=== PATIENT | female | born 1980 | race Caucasian/White ===

== ENCOUNTER 2020-09-27 02:22 | Outpatient (CLI) | payer OTHER, SELFPAY ==
[2020-09-27 22:41] LABS: SARS-CoV-2 RNA PCR Negative
== END 2020-09-27 02:23 | disposition home or self-care (01) ==
LOC: ANHCOVIDDT 02:22
PROVIDERS: PCP Family Medicine; Visit Provider Obstetrics & Gynecology
DX: Z01.818 Encounter for other preprocedural examination (principal); Z20.828 Contact with and (suspected) exposure to other viral communicable diseases
CPT/HCPCS: 87635; C9803; U0003

== ENCOUNTER 2020-09-27 11:04 | Outpatient (CLI) | payer OTHER, SELFPAY ==
[2020-09-27 11:25] LABS: Basophils Absolute Auto 0.1 K/mm3 (0.0-0.1); Basophils Percent Auto 0.9 % (0.2-1.2); Eosinophils Absolute Auto 0.3 K/mm3 (0-0.3); Eosinophils Percent Auto 3.9 % (0-4.4); Hematocrit 43.9 % (37.0-47.0); Hemoglobin 14.9 g/dL (12.0-15.0); Immature Granulocyte Absolute 0.01 K/mm3 (0.00-0.031); Immature Granulocyte Percent A 0.1 % (0-0.5); Lymphocytes Absolute Auto 2.26 K/mm3 (0.9-3.2); Lymphocytes Percent Auto 30.3 % (18.3-44.2); Mean Corpuscular HGB Conc 33.9 g/dl (32-36); Mean Corpuscular Hemoglobin 29.8 pg (26-34); Mean Corpuscular Volume 87.8 fl (80-100); Monocytes Absolute Auto 0.8 K/mm3 (0.1-0.6); Monocytes Percent Auto 10.1 % (2.6-8.5); Neutrophils Absolute Auto 4.1 K/mm3 (1.3-6.7); Neutrophils Percent Auto 54.7 % (45.5-73.1); Platelet Count Result 297 k/mm3 (150-375); Red Cell Distribution Width 12.5 % (11.5-14.5); White Blood Count 7.5 K/mm3 (4.5-10.0)
== END 2020-09-27 11:05 | disposition home or self-care (01) ==
PROVIDERS: PCP Family Medicine; Visit Provider Obstetrics & Gynecology
DX: Z01.818 Encounter for other preprocedural examination (principal); N85.2 Hypertrophy of uterus
CPT/HCPCS: 36415; 85025; 86850; 86900; 86901

== ENCOUNTER 2020-09-30 | Day surgery (SDC) | payer OTHER, SELFPAY ==
[2020-09-26 10:30] VITALS: BMI 32.3
--- NOTE | 2020-09-27 13:56 | P.HP_ITS ---
H&P: HPI History of Present Illness Date/Time: 09/27/20 13:56 Chief complaint: Abnormal Bleeding/ Hx Abnormal PAP/Enlarged Uterus Narrative: Carola Robles is a 40 year old female 2 4 P2 who was admitted for robotic total vaginal hysterectomy bilateral salpingectomy. She has had continued having irregular bleeding despite undergoing an ablation. She also has pain and discomfort. Risks and benefits of this procedure reviewed including but not exclusive of , aspiration pneumonia, bleeding, transfusion, perforation injury to bowel, bladder, ureters, or other internal organs with need for open laparotomy. She received the [employer] handout entitled hysterectomy as well as the NG handout. She had all questions answered. She asked to proceed Review of Systems Review of Systems: All systems reviewed & are unremarkable except as noted in HPI and below PMFSH Social History Social History Smoking status: Never smoker Drinks per week: 1 Substance use: never Spiritual care concerns: No Meds Home Medications and Allergies Home Medications Medication Instructions Recorded Confirmed Type cholecalciferol (vitamin D3) 50 mcg PO DAILY 09/26/20 09/26/20 History [Vitamin D3] folic acid 1 mg PO DAILY 09/26/20 09/26/20 History omega 1-kgn-dtq-fish oil [Fish Oil] 1 cap PO DAILY 09/26/20 09/26/20 History vitamin B complex 1 cap PO DAILY 09/26/20 09/26/20 History Allergies Allergy/AdvReac Type Severity Reaction Status Date / Time No Known Allergies Allergy Unverified 09/26/20 10:05 Exam Const: General: no acute distress Eyes: General: appearance normal, both eyes and all related structures Neck: Neck: supple and no JVD Thyroid: thyroid normal Resp: Effort & Inspection: normal respiratory effort Auscultation: clear to auscultation bilaterally Cardio: Rate: regular rate Rhythm: regular rhythm GI: Inspection: non-distended GI Palp: Yes Soft to palpation, No Tenderness to palpation present (GI) and No Guarding due to palpation present (GI) Auscultation: normal bowel sounds : General: Yes bladder normal to inspection External Female Exam: normal external appearance Speculum Exam - Vagina: normal appearance of the vagina Speculum Exam - Cervix: normal appearance of the cervix Bimanual exam- vagin a & uterus: boggy and enlarged Skin: General skin exam: no rashes or lesions noted Extrem: General: normal to inspection and no edema Psych: Mental Status: mental status grossly normal Affect: normal affect Assessment and Plan Additional Plan mesh in: Enlarged uterus and continued bleeding despite therapy with previous ablation Plan: Robotic hysterectomy and bilateral salpingectomy
[2020-09-30] VITALS (15 sets, daily range): BP systolic 99–134; BP diastolic 55–90; PULSE 63–88; RESP 12–16; TEMP 36.6–37.4; O2SAT 96–100
--- NOTE | 2020-09-30 06:16 | WPDHPUPDATE1 ---
History and Physical Update Update Date/Time: 09/30/20 06:16 History and Physical has been reviewed, including an updated exam of the patient. There are NO changes in the patient's condition. Risks, benefits, and alternatives have been discussed and questions answered. Patient agrees to proceed with procedure.
--- NOTE | 2020-09-30 06:29 | WPDANESEPPF ---
Anes - Initial Pre Proc Eval Procedure: Operation Date: 09/30/20 07:30 Proposed Procedures p Robotic Assisted Total Vaginal Hysterectomy, Bilateral Salpingectomy - Arsenio Carrasco MD Date/Time: 09/30/20 06:29 Surgeon: Arsenio Carrasco MD Pre Op Diagnosis: Abnormal Bleeding/ Hx Abnormal PAP/Enlarged Uterus Patient Data Age: 40 Gender: F Height: 5 ft 6 in Weight: 90.8 kg Last Vital Signs Temp 37.2 C 09/30/20 06:08 Pulse 81 09/30/20 06:08 Resp 16 09/30/20 06:08 BP 134/90 09/30/20 06:08 Pulse Ox 100 09/30/20 06:08 Allergies Allergy/AdvReac Type Severity Reaction Status Date / Time No Known Allergies Allergy Unverified 09/30/20 06:31 Home Medications Medication Instructions Recorded Confirmed Type cholecalciferol (vitamin D3) 50 mcg PO DAILY 09/26/20 09/26/20 History [Vitamin D3] folic acid 1 mg PO DAILY 09/26/20 09/26/20 History omega 4-dyo-ace-fish oil [Fish Oil] 1 cap PO DAILY 09/26/20 09/26/20 History vitamin B complex 1 cap PO DAILY 09/26/20 09/26/20 History hydrocodone-acetaminophen [[place]] 1 tablet PO Q4H PRN #30 tablet 09/30/20 Rx Patient hx anesthesia problems: none Family hx anesthesia problems: none PMFSH Past Medical History Medical History (Updated 09/30/20 @ 06:32 by Arsenio Owens MD) Obesity Surgical History Surgical History (Updated 09/30/20 @ 06:32 by Arsenio Owens MD) H/O laparoscopy History of mandibular surgery Social History Social History Smoking status: Never smoker Drinks per week: 1 Substance use: never Living arrangements: with family Spiritual care concerns: No Anes - Eval Final PreProcedure Day of Procedure 09/30/20 06:29 Patient weight: obese Heart: regular rate and rhythm Lungs: clear to auscultation Airway: Mallampati scale class II Neurological: alert and oriented Last oral intake: >/= 8 hours ASA classification: II Emergent: no Anesthetic plan: proceed Anesthesia type and monitoring: general ETT and standard monitoring Informed Consent: The patient's anesthetic plan and its attendant risks and benefits were discussed with the patient/family/POA. Questions were solicited and answers provided to the satisfaction of the patient/family/POA.
[2020-09-30] MEDS: ACETAMINOPHEN 500 MG TABLET 1000 MG PO (06:31)
[2020-09-30] MEDS: LACTATED RINGERS 1,000 ML 30 ML IV CONT ×2 (06:44→08:37)
[2020-09-30] MEDS: KETOROLAC 15 MG/ML VIAL (*BKC) IV PUSH (06:45)
[2020-09-30] MEDS: ceFAZolin 2 GM/D5W 50 ML 2 GM/50 ML BAG IVPB (07:23)
--- NOTE | 2020-09-30 08:24 | PM.PROC ---
Procedure Note - Detailed Date of procedure: 09/30/20 Pre-op diagnosis: Abnormal Bleeding/ Hx Abnormal PAP/Enlarged Uterus Surgeon: Arsenio Carrasco MD Postop diagnosis: Abnormal bleeding/abnormal Pap/enlarged uterus Procedure: Robotic total vaginal hysterectomy and bilateral salpingectomy EBL: 20cc Anesthesia: General endotracheal Complications: None Findings: Enlarged uterus. Tubes status post tubal ligation. Normal-appearing ovaries bilaterally. Description of procedure: The patient was prepped and draped in the normal sterile fashion placed in the dorsal lithotomy position. Under excellent general endotracheal anesthesia weighted speculum was placed in posterior fornix of vagina. Anterior lip of the cervix grasped with a single-tooth tenaculum and the uterus sounded to 9cm. Serial dilatation with fragmented dilators performed followed by passage of the 8. VELASQUEZ and the 2. And half cold cup. Next the 16 Urdu catheter was placed in the bladder and drained of clear urine. The remainder the instruments removed. The gloves were changed. A supraumbilical incision was made the Veress needle passed in the abdomen. The abdomen was filled with CO2 gas to 15mm Hg. The 8mm trocar advanced in the abdomen. The downside visualized and no injury seen. The patient placed in Trendelenburg and right and left lateral quadrant incisions made. The 8mm trocars advanced under direct visualization assuring no injury. A right upper quadrant incision made and the 10mm trocar advanced under direct visualization assuring no injury. The robot was docked. Attention was turned to the drug abuse counselor. The left round ligament was grasped, burned, cut. Anteriorly a bladder flap was formed by sharply dissecting with the scissors to the opposite round ligament which was clamped, burned, cut. Next the left fallopian tube was sharply dissected away from the ovarian complex to its opening at the uterus to be removed. In like fashion removing the right tube the ovary was from the tube. The left utero-ovarian ligament was then skeletonized to conserve the left ovary clamped, burned, cut. This was brought to the level of previously cut round ligament. In like fashion conserving the right ovary the right utero-ovarian ligament was clamped, burned, cut and brought to the level of previously cut round ligament. Next the cardinal and broad ligaments were serially skeletonized. These on the left they were clamped, burned, cut. Once the uterine vessels could be seen there were individually clamped, burned, cut. In like fashion the cardinal and broad ligaments on the right were serially skeletonized. These were clamped, burned, cut. This was brought down to the level of the uterine vessels. These were individually clamped, burned, cut. Blanching the uterus was noted a colpotomy incision was made in the cervix uterus and tubes removed through the vagina. Blood loss estimated at20cc. The vagina was then closed with continuous running 0V lock from lateral edge to lateral edge back to the midline. Irrigation undertaken until clear. [place] derm was placed on the raw surface areas and excellent hemostasis was noted. The robot was undocked. The gas removed from the abdomen. The incisions closed with 4 O Monocryl and glue. The patient was taken to recovery in satisfactory condition. All sponge, needle, instrument counts were correct. There were no immediate complications
[2020-09-30] MEDS: fentaNYL CITRATE INJ (*CRX) 100 MCG/2 ML VIAL 25 MCG IV PUSH ×2 (09:15→09:19)
--- NOTE | 2020-09-30 09:21 | SUR.PHASEI ---
[phone] sbar faxed floor notified
--- NOTE | 2020-09-30 09:55 | PC.NURSE ---
This patient, Carola Robles, was received from PACU on 09/30/20 at 0955. Patient/family oriented to unit policies and routines
[2020-09-30] MEDS: MORPHINE SULFATE (*CRX) 4 MG/ML INJ IV PUSH ×2 (10:43→20:12)
[2020-09-30] MEDS: DEXTROSE 5%/LACTATED RINGERS 1,000 ML 125 ML IV CONT (10:43)
[2020-09-30] MEDS: KETOROLAC 30 MG/ML VIAL (*BKC) IV PUSH ×2 (15:41→23:50)
[2020-09-30] MEDS: DOCUSATE SODIUM 100 MG CAPSULE PO (19:01)
[2020-09-30] MEDS: HYDROcodone/acetaminophen (*CRX) 5-325 MG TABLET 1 TAB PO (19:03)
[2020-09-30] MEDS: ONDANSETRON INJ 4 MG/2 ML VIAL IV PUSH (22:13)
[2020-10-01] VITALS: BP 100/61; PULSE 76; RESP 16; TEMP 37; O2SAT 98
[2020-10-01] MEDS: HYDROcodone/acetaminophen (*CRX) 10-325 MG TABLET 1 TAB PO ×2 (03:58→11:03)
[2020-10-01 04:00] VITALS: BP 106/67; PULSE 74; RESP 16; TEMP 36.7; O2SAT 99
[2020-10-01 04:57] LABS: Basophils Percent Auto 0.4 % (0.2-1.2); Eosinophils Absolute Auto 0.1 K/mm3 (0-0.3); Eosinophils Percent Auto 0.5 % (0-4.4); Hematocrit 33.5 % (37.0-47.0); Hemoglobin 11.4 g/dL (12.0-15.0); Immature Granulocyte Absolute 0.02 K/mm3 (0.00-0.031); Immature Granulocyte Percent A 0.2 % (0-0.5); Lymphocytes Absolute Auto 2.14 K/mm3 (0.9-3.2); Lymphocytes Percent Auto 19.4 % (18.3-44.2); Mean Corpuscular Hemoglobin 30.2 pg (26-34); Mean Corpuscular Volume 88.9 fl (80-100); Mean Platelet Volume 9.4 fl (7.4-10.4); Neutrophils Absolute Auto 7.8 K/mm3 (1.3-6.7); Neutrophils Percent Auto 70.5 % (45.5-73.1); Platelet Count Result 236 k/mm3 (150-375); Red Blood Count 3.77 M/mm3 (4.2-5.4); Red Cell Distribution Width 12.5 % (11.5-14.5)
[2020-10-01] MEDS: ENOXAPARIN 40 MG/0.4 ML SYRINGE SUB-Q (08:09)
[2020-10-01] MEDS: DOCUSATE SODIUM 100 MG CAPSULE PO (08:09)
[2020-10-01 08:10] VITALS: BP 109/62; PULSE 67; RESP 18; TEMP 36.6; O2SAT 98
--- NOTE | 2020-10-01 08:36 | P.DS_ITS ---
DS: Admitting Diagnosis Admitting Diagnosis Admitting Diagnosis: Pelvic pain/uterus/bleeding DS: Summary Hospital Course Hospital Course: Her hospital course was unremarkable please see previous dictation Time Spent with Patient Time attestation: Total time spent providing and/or coordinating discharge services: Patient was admitted for robotic total vaginal remained bilateral salpingectomy. Her hospital course was unremarkable. She remained afebrile. She was up, ambulating, eating without difficulty, passing gas, and general without complaints her hospital course was unremarkable Exam Const: General: no acute distress Eyes: General: appearance normal, both eyes and all related structures Neck: Neck: supple and no JVD Thyroid: thyroid normal Resp: Effort & Inspection: normal respiratory effort Auscultation: clear to auscultation bilaterally Cardio: Rate: regular rate Rhythm: regular rhythm GI: Inspection: non-distended GI Palp: Yes Soft to palpation, No Tenderness to palpation present (GI) and No Guarding due to palpation present (GI) Auscultation: normal bowel sounds : General: Yes bladder normal to palpation External Female Exam: normal external appearance Speculum Exam - Vagina: normal vaginal discharge and No vaginal bleeding Speculum Exam - Cervix: nontender Bimanual exam- vagina & uterus: bladder normal to palpation and No Cervical tenderness present OB/external & speculum: No vaginal bleeding Skin: General skin exam: no rashes or lesions noted Extrem: General: normal to inspection and no edema Psych: Mental Status: mental status grossly normal Affect: normal affect DS: Data Data Completed and Pending Pending studies at discharge: Pending at discharge 09/30/20 08:01 Surgical [PTH] Routine Labs on day of discharge: Labs from last 24 hours 10/01/20 04:03 WBC 11.0 H RBC 3.77 L Hgb 11.4 L D Hct 33.5 L MCV 88.9 MCH 30.2 MCHC 34.0 RDW 12.5 Plt Count 236 MPV 9.4 Immature Gran % (Auto) 0.2 Neut % (Auto) 70.5 Lymph % (Auto) 19.4 [place] % (Auto) 9.0 H Eos % (Auto) 0.5 Baso % (Auto) 0.4 Lymph # (Auto) 2.14 [place] # (Auto) 1.0 H Eos # (Auto) 0.1 Baso # (Auto) 0.0 Abs Immat Gran (auto) 0.02 Absolute Neuts (auto) 7.8 H Absolute Nucleated RBC 0.0 Nucleated RBC % 0.0 Discharge Plan Discharge Patient Disposition: Home, Self-Care Stand Alone Forms: General Discharge Instructions Follow-up/Referrals: Arsenio Carrasco MD [Physician] - Discharge Medications: New hydrocodone-acetaminophen [[place]] 5-325 mg tablet 1 tablet PO Q4H PRN (Reason: pain) Qty: 30 RF: 0 Continued folic acid 1 mg Tablet 1 mg PO DAILY RF: 0 vitamin B complex Capsule 1 cap PO DAILY RF: 0 cholecalciferol (vitamin D3) [Vitamin D3] 50 mcg (2,000 unit) Tablet 50 mcg PO DAILY RF: 0 omega 5-jks-hbx-fish oil [Fish Oil] 1,000 mg (120 mg-180 mg) Capsule 1 cap PO DAILY RF: 0
--- NOTE | 2020-10-01 08:36 | PM.OBPNVD ---
OB - PN: Subj Subjective Date/time seen: 10/01/20 08:36 Patient comments: no complaints and pain well controlled OB - PN: Obj Data Labs CBC & Chem 7: 10/01/20 04:03 Labs: Laboratory Results - last 24 hr 10/01/20 04:03 WBC 11.0 H RBC 3.77 L Hgb 11.4 L D Hct 33.5 L MCV 88.9 MCH 30.2 MCHC 34.0 RDW 12.5 Plt Count 236 MPV 9.4 Immature Gran % (Auto) 0.2 Neut % (Auto) 70.5 Lymph % (Auto) 19.4 [place] % (Auto) 9.0 H Eos % (Auto) 0.5 Baso % (Auto) 0.4 Lymph # (Auto) 2.14 [place] # (Auto) 1.0 H Eos # (Auto) 0.1 Baso # (Auto) 0.0 Abs Immat Gran (auto) 0.02 Absolute Neuts (auto) 7.8 H Absolute Nucleated RBC 0.0 Nucleated RBC % 0.0 OB - PN A/P Plan day: 1 Plan: discharge home and follow up 6 weeks (2 weeks) Time Spent With Patient Time: Total time spent is greater than 50% in coordination of care (as documented) at patient's floor/unit and/or counseling patient: Time with patient: less than 15 minutes Review of Systems Review of Systems: All systems reviewed & are unremarkable except as noted in HPI and below Exam Const: General: no acute distress Eyes: General: appearance normal, both eyes and all related structures Neck: Neck: supple and no JVD Thyroid: thyroid normal Resp: Effort & Inspection: normal respiratory effort Auscultation: clear to auscultation bilaterally Cardio: Rate: regular rate Rhythm: regular rhythm GI: Inspection: non-distended GI Palp: Yes Soft to palpation, No Tenderness to palpation present (GI) and No Guarding due to palpation present (GI) Auscultation: normal bowel sounds : General: Yes bladder normal to palpation External Female Exam: normal external appearance Speculum Exam - Vagina: normal vaginal discharge and No vaginal bleeding Speculum Exam - Cervix: nontender Bimanual exam- vagina & uterus: bladder normal to palpation and No Cervical tenderness present OB/external & speculum: No vaginal bleeding Skin: General skin exam: no rashes or lesions noted Extrem: General: normal to inspection and no edema Psych: Mental Status: mental status grossly normal Affect: normal affect
[2020-10-01] MEDS: IBUPROFEN 600 MG TABLET PO (11:03)
--- NOTE | 2020-10-01 11:21 | WPDANESPN ---
Anes - Prog Note Post-Op Date/Time: 10/01/20 11:21 Cardiovascular status: normal Respiratory status: normal Airway patency: baseline Mental status: baseline Post-Op hydration status: normal Vital Signs: Last Vital Signs Temp 36.7 C 10/01/20 04:00 Pulse 74 10/01/20 04:00 Resp 16 10/01/20 04:00 BP 106/67 10/01/20 04:00 Pulse Ox 99 10/01/20 04:00 Pain Score (VAS): 10/23 I/O: Intake & Output 09/30/20 10/01/20 10/01/20 23:59 07:59 15:59 Intake Total 1000 1100 Output Total 1950 Balance 1000 -850 Laboratory Tests 10/01/20 04:03 10/01/20 04:03 WBC 11.0 H RBC 3.77 L Hgb 11.4 L D Hct 33.5 L MCV 88.9 MCH 30.2 MCHC 34.0 RDW 12.5 Plt Count 236 MPV 9.4 Immature Gran % (Auto) 0.2 Neut % (Auto) 70.5 Lymph % (Auto) 19.4 [place] % (Auto) 9.0 H Eos % (Auto) 0.5 Baso % (Auto) 0.4 Lymph # (Auto) 2.14 [place] # (Auto) 1.0 H Eos # (Auto) 0.1 Baso # (Auto) 0.0 Abs Immat Gran (auto) 0.02 Absolute Neuts (auto) 7.8 H Absolute Nucleated RBC 0.0 Nucleated RBC % 0.0 Post-procedural complaints: none Patient Feedback: Patient satisfied with anesthetic care.
== END 2020-10-01 12:00 | disposition home or self-care (01) ==
LOC: ANHSURGERY 06:02 → ANHOB2 10:39
PROVIDERS: PCP Family Medicine; Visit Provider Obstetrics & Gynecology
PROC: (CPT 58552; principal; 2020-09-30 07:30)
DX: N93.9 Abnormal uterine and vaginal bleeding, unspecified (principal); N72 Inflammatory disease of cervix uteri; N83.8 Other noninflammatory disorders of ovary, fallopian tube and broad ligament
CPT/HCPCS: 58552; S2900; 36415; 85025; 86850; 86900; 86901; 87635; 88307; 99199; A9270; C9803; J0690; J1100; J1170; J1650; J1885; J2250; J2270; J2405; J2704; J2710; J3010; J7120; J7121; U0003